=== PATIENT | male | born 1945 | race Caucasian/White ===

== ENCOUNTER 2018-03-25 22:08 | Emergency (ER) | payer MEDICARE ==
[2018-03-25] MEDS ORDERED: ONDANSETRON PF 4 MG/2 ML VIAL. IV ONE (23:30)
[2018-03-25] MEDS ORDERED: IV NORMAL SALINE 500ML 500 ML IV ONE (23:30)
--- NOTE | 2018-03-25 23:34 | PHYS DOC ---
Past History Past Medical History: Constipation, Diabetes, Hypertension, IBS Alcohol Use: Occasionally Drug Use: None Adult General Chief Complaint Chief Complaint: ABDOMINAL PAIN HPI HPI Patient is a [72] year old [male] who presents with [complaining of abdominal pain. Patient states he has had history of constipation for years and usually has1 or 2 bowel movement every week. Patient states he took couple of animal and had the bowel movement at 1500 today that was less than his usual. Patient complaining of sudden onset of lower abdominal cramping pain since 1700 with radiation to his back and associated nausea without vomiting. Patient states he had flatus. Patient states he has had problem with enlarged prostate and urination and seen by his urologist and currently taking antibiotic for prostatitis. Patient denies fever and chills, chest pain, shortness of breath, rectal bleeding. Review of Systems Review of Systems Constitutional: Denies fever or chills [] Eyes: Denies change in visual acuity, redness, or eye pain [] HENT: Denies nasal congestion or sore throat [] Respiratory: Denies cough or shortness of breath [] Cardiovascular: No additional information not addressed in HPI [] GI: Reports abdominal pain, nausea, constipation, denies vomiting, bloody stools or diarrhea [] : Denies dysuria or hematuria [] Musculoskeletal: Denies back pain or joint pain [] Integument: Denies rash or skin lesions [] Neurologic: Denies headache, focal weakness or sensory changes [] Endocrine: Denies polyuria or polydipsia [] All other systems were reviewed and found to be within normal limits, except as documented in this note. Current Medications Current Medications Current Medications Medications (Trade) Dose Ordered Sig/Cate Start Time Stop Time Status Last Admin Dose Admin Fentanyl Citrate (Fentanyl 2ml Vial) 50 mcg 1X ONCE 03/25/18 23:30 03/25/18 23:31 UNV Ondansetron HCl (Zofran) 4 mg 1X ONCE 03/25/18 23:30 03/25/18 23:31 UNV Sodium Chloride 500 ml @ 0 mls/hr 1X ONCE 03/25/18 23:30 03/25/18 23:31 UNV Allergies Allergies Allergies Coded Allergies Type Severity Reaction Last Updated Verified No Known Drug Allergies 03/25/18 No Physical Exam Physical Exam Constitutional: Well developed, well nourished, moderate distress, non-toxic appearance. [] HENT: Normocephalic, atraumatic, oropharynx moist, no oral exudates, nose normal. [] Eyes: PERRLA, EOMI, conjunctiva normal, no discharge. [] Neck: Normal range of motion, no tenderness, supple, no stridor. [] Cardiovascular:Heart rate regular rhythm, no murmur [] Lungs & Thorax: Bilateral breath sounds clear to auscultation [] Abdomen: Bowel sounds normal, soft, no tenderness, no masses, no pulsatile masses, rectal exam with present of web designer showed empty rectum. [] Skin: Warm, dry, no erythema, no rash. [] Back: No tenderness, no CVA tenderness. [] Extremities: No tenderness, no cyanosis, no clubbing, ROM intact, no edema. [] Neurologic: Alert and oriented X 3, normal motor function, normal sensory function, no focal deficits noted. [] Psychologic: Affect anxious, judgement normal, mood normal. [] Current Patient Data Vital Signs Vital Signs Date Time Temp Pulse Resp B/P (MAP) Pulse Ox O2 Delivery O2 Flow Rate FiO2 03/25/18 22:32 98.3 59 16 100 Room Air EKG EKG [] Radiology/Procedures Radiology/Procedures [[place] [address] IMAGING REPORT Signed PATIENT: ROSALINA VALVERDE ACCOUNT: [id number] : 1945 LOCATION: ER AGE: 72 SEX: M EXAM STATUS: REG ER ORD. PHYSICIAN: TANO STEELE MD REASON: abdominal pain PROCEDURE: CT ABD PELV W/ IV CONTRST ONLY INDICATION: Omni 300 75cc: abdomen pain, constipation, nausea. Hx: Appendectomy, prostatitis COMPARISON: None. TECHNIQUE: Axial CT images obtained through the abdomen and pelvis with contrast. One or more of the following individualized dose reduction techniques were utilized for this examination: 1. Automated exposure control; 2. Adjustment of the mA and/or kV according to patient size; 3. Use of iterative reconstruction technique. FINDINGS: Mild subpleural nodularity lung bases, could be from nodular atelectasis. Coronary artery calcific atherosclerosis partially seen. At least moderate atherosclerotic disease. No intrahepatic bile duct dilation. No peripancreatic fluid collection. Splenic calcified granulomas. Left-sided hydronephrosis and perinephric edema with adjacent fluid. 6 mm left proximal ureter stone. Urinary bladder is partially distended. Prostate calcifications. No right-sided hydronephrosis. No definite dilated loops of bowel to suggest obstruction. Degenerative changes the spine with multilevel central canal neural foraminal stenosis. Some distention of stomach. Low-density left renal lesion. Commonly seen finding but incompletely evaluated on this exam. IMPRESSION: 1. Left-sided hydronephrosis and perinephric edema with left proximal ureter stone. 2. Calcific atherosclerosis. 3. There is some distention of the stomach. Could be from recent meal unless the patient is displaying symptoms of delayed gastric emptying. 4. Low-density lesion of the left kidney measuring up to 9 mm which is not well characterized on this exam. Electronically signed by: Nicolasa Snyder MD (03/26/2018 12:44 AM) [facility] DICTATED AND SIGNED BY: NICOLASA SNYDER MD DATE: 03/26/1837 CC: TANO STEELE MD; ALEX JASSO ~ ] Course & Med Decision Making Course & Med Decision Making Pertinent Labs and Imaging studies reviewed. (See chart for details) Evaluation of patient in ER showed 72-year-old female patient with history of constipation complaining of sudden onset of lower abdominal pain. Unremarkable physical exam. Labs showed mild leukocytosis of 11.4 and elevation of BUN/ creatinine that according to family member is a chronic problem. She treated with fentanyl 2 with improvement of his pain. Patient treated with IV fluid but was not able to give urine sample. Because of the patient's age, history of diabetes, pain after taking edema and large stone plan to admit patient at Hospital. Dr. Mccormick accepted transfer to [facility] at 0114 but patient changed his mind and decided to [facility]. Dr. Clay on-call hospitalist at [facility] accepted transfer at 0145. Rachell Disclaimer Rachell Disclaimer This electronic medical record was generated, in whole or in part, using a voice recognition dictation system. Departure Departure: Impression: Primary Impression: Renal colic on left side Additional Impressions: Ureterolithiasis Constipation Renal insufficiency Uncontrolled diabetes mellitus Disposition: XFER [facility] ([facility] at 0115) Admitting Physician: Maggie Mccormick (at 0113) Condition: IMPROVED Referrals: ALEX JASSO (PCP) Problem Qualifiers TANO STEELE MD Mar 25, 2018 23:34
[2018-03-25 23:43] LABS: BASO % 0 % (0-3); EOS % 0 % (0-3); HEMATOCRIT 37.9 % (39.0-53.0); LYMPH # 0.7 x10^3/uL (1.0-4.8); LYMPH % 6 % (24-48); MEAN CORPUSCULAR HEMOGLOBIN 31 pg (25-35); MEAN CORPUSCULAR HGB CONC 34 g/dL (31-37); MEAN CORPUSCULAR VOLUME 91 fL (79-100); MONO # 0.5 x10^3/uL (0.0-1.1); MONO % 4 % (0-9); NEUT # 10.5 x10^3uL (1.8-7.7); NEUT % 90 % (31-73); PLATELET COUNT 166 x10^3/uL (140-400); RED BLOOD COUNT 4.15 x10^6/uL (4.30-5.70); RED CELL DISTRIBUTION WIDTH 13.6 % (11.5-14.5); WHITE BLOOD COUNT 11.6 x10^3/uL (4.0-11.0)
[2018-03-25 23:59] LABS: ALBUMIN 4.2 g/dL (3.4-5.0); ALBUMIN/GLOBULIN RATIO 1.4 (1.0-1.7); CALCIUM 9.6 mg/dL (8.5-10.1); CREATININE 1.6 mg/dL (0.7-1.3); GFR 42.7; POTASSIUM 4.8 mmol/L (3.5-5.1); TOTAL BILIRUBIN 0.9 mg/dL (0.2-1.0); TOTAL PROTEIN 7.2 g/dL (6.4-8.2)
[2018-03-26] MEDS ORDERED: IOHEXOL 300 MG/ML 75 ML VIAL. IV ONE
[2018-03-26] MEDS ORDERED: CONTRAST GIVEN MC PRN (00:15)
--- NOTE | 2018-03-26 00:48 | RAD ---
INDICATION: Omni 300 75cc: abdomen pain, constipation, nausea. Hx: Appendectomy, prostatitis COMPARISON: None. TECHNIQUE: Axial CT images obtained through the abdomen and pelvis with contrast. One or more of the following individualized dose reduction techniques were utilized for this examination: 1. Automated exposure control; 2. Adjustment of the mA and/or kV according to patient size; 3. Use of iterative reconstruction technique. FINDINGS: Mild subpleural nodularity lung bases, could be from nodular atelectasis. Coronary artery calcific atherosclerosis partially seen. At least moderate atherosclerotic disease. No intrahepatic bile duct dilation. No peripancreatic fluid collection. Splenic calcified granulomas. Left-sided hydronephrosis and perinephric edema with adjacent fluid. 6 mm left proximal ureter stone. Urinary bladder is partially distended. Prostate calcifications. No right-sided hydronephrosis. No definite dilated loops of bowel to suggest obstruction. Degenerative changes the spine with multilevel central canal neural foraminal stenosis. Some distention of stomach. Low-density left renal lesion. Commonly seen finding but incompletely evaluated on this exam. IMPRESSION: 1. Left-sided hydronephrosis and perinephric edema with left proximal ureter stone. 2. Calcific atherosclerosis. 3. There is some distention of the stomach. Could be from recent meal unless the patient is displaying symptoms of delayed gastric emptying. 4. Low-density lesion of the left kidney measuring up to 9 mm which is not well characterized on this exam. Electronically signed by: Humza Bah MD (03/26/2018 12:44 AM) [facility]
[2018-03-26] MEDS ORDERED: TAMSULOSIN 0.4 MG CAP.ER.24H. PO ONE (01:15)
[2018-03-26] MEDS ORDERED: IV NORMAL SALINE 1,000ML 1,000 ML IV ONE (01:15)
[2018-03-26 01:40] VITALS: BP 177/80
== END 2018-03-26 02:48 | disposition short-term general hospital (02) ==
LOC: ER 22:08
DX: N13.2 Hydronephrosis with renal and ureteral calculous obstruction (principal); N28.9 Disorder of kidney and ureter, unspecified; K59.00 Constipation, unspecified; I70.0 Atherosclerosis of aorta; E11.65 Type 2 diabetes mellitus with hyperglycemia; I10 Essential (primary) hypertension; K58.9 Irritable bowel syndrome, unspecified
CPT/HCPCS: 36415; 74177; 80053; 83690; 84484; 85025; 96361; 96374; 96375; 96376; 99285; J2405; J3010; J7040; Q9967; J7030

== ENCOUNTER → 2019-02-03 | Outpatient (CLI) | payer MEDICARE ==
--- NOTE | 2019-02-03 11:52 | RAD ---
Chest, 2 views, 02/03/2019: HISTORY: Cough The heart size and pulmonary vascularity are normal. There is a calcified granuloma in the left base. No acute infiltrate is seen. There is no evidence of pleural fluid. Moderate spurring is present in the spine. IMPRESSION: No acute cardiopulmonary abnormality is detected. Electronically signed by: Abraham Ortiz MD (02/03/2019 11:49 AM) [facility]
== END | disposition home or self-care (01) ==
LOC: DXRAD 10:39
PROVIDERS: ATTEND Physician Assistant
DX: J84.10 Pulmonary fibrosis, unspecified (principal)
CPT/HCPCS: 71046

== ENCOUNTER → 2019-07-07 | Outpatient (CLI) | payer MEDICARE ==
--- NOTE | 2019-07-07 14:42 | RAD ---
Examination: ABDOMEN SUPINE UPRIGHT History: Right upper quadrant pain with nausea Comparison/Correlation: 03/25/2018 CT Abd and Pelvis with contrast Findings: Supine and upright views of the abdomen were obtained. Visualized lung bases are clear. Moderate quantity of stool in the colon noted. No suspicious abdominal calcifications. Suture material involving the right lower quadrant. Impression: No obstruction. Electronically signed by: Mikhail Reyes MD (07/07/2019 2:39 PM) [facility]
== END | disposition home or self-care (01) ==
LOC: PMG 12:39
PROVIDERS: ATTEND Physician Assistant
DX: R10.13 Epigastric pain (principal); R10.11 Right upper quadrant pain
CPT/HCPCS: 74019